=== PATIENT | female | born 1990 | race Caucasian/White ===

== ENCOUNTER → 2020-09-26 | Outpatient (CLI) | payer OTHER ==
[~2020-09-26] MED LIST: ACET500T PO; IBUP200T2 PO; PRENTAB74 PO
--- NOTE | 2020-09-27 15:44 | REP ---
INDICATION: ANATOMY. Supervision of . Second trimester. COMPARISON: None. TECHNIQUE: Transabdominal obstetric sonography. FINDINGS: Scanning through the gravid uterus demonstrates a viable single intrauterine gestation in variable lie. motion is observed and heart rate is recorded at 142 beats per minute. A anterior placenta is seen, grade 1, without evidence of placenta previa. Closed cervical length is measured at 3.1 cm transabdominally. No extrauterine abnormality is observed. Amniotic fluid is subjectively normal. No anomaly is seen. The following anatomic structures are identified and felt to be sonographically unremarkable: cranium, choroid plexus, cavum, cerebellum and posterior fossa, face and profile, lungs, four-chamber heart with left and right ventricular outflow tract views, diaphragm, left-sided stomach, abdominal wall cord insertion, three-vessel umbilical cord, kidneys and bladder, spine, and upper and lower extremities. The technologist's notes describe an unusual curvature to the interventricular septum, however on the submitted two-dimensional and cine images, I do not see a cardiac abnormality. Biometry chart: BPD 5.0 cm, 21 weeks 2 days Head circumference 20.3 cm, 22 weeks 3 days Abdominal circumference 17.9 cm, 22 weeks 6 days Femur length 3.8 cm, 22 weeks 1 day Humeral length 3.6 cm, 22 weeks 4 days HC AC ratio normal 1.13 Cephalic index 0.66 open (0.70-0.86) Estimated weight 502 g, 1 lb 1 oz, 85th percentile for 21 weeks 4 days IMPRESSION: Viable single intrauterine gestation at 22 weeks 2 days by today's composite sonographic criteria. JING by today's sonography January 28, 2021. No complication identified. Expected gestational age estimate from prior dated 03/08 weeks 4 days JING by prior dated 02 February 2021. <Electronically signed by Bryan Rao > 09/27/20 [id number]
== END ==
LOC: M WHC 15:08
PROVIDERS: ATTEND Specialist
DX: Z34.82 Encounter for supervision of other normal pregnancy, second trimester (principal); Z3A.22 22 weeks gestation of pregnancy

== ENCOUNTER → 2020-11-07 | Outpatient (REF) | payer OTHER ==
[2020-11-07 14:26] LABS: HEMOGLOBIN 12.1 g/dl (12.0-15.5); MEAN CORPUSCULAR HEMOGLOBIN 28.3 pg (27.0-33.0); MEAN CORPUSCULAR HGB CONC 31.8 g/dl (32.0-36.5); MEAN CORPUSCULAR VOLUME 88.8 fl (80.0-96.0); PLATELET COUNT, AUTOMATED 289 10^3/uL (150-450); RED BLOOD COUNT 4.28 10^6/uL (4.00-5.40); WHITE BLOOD COUNT 9.6 10^3/uL (4.0-10.0)
== END ==
LOC: M PLALAB 10:47
PROVIDERS: ATTEND Specialist
DX: Z34.82 Encounter for supervision of other normal pregnancy, second trimester (principal)
CPT/HCPCS: 36415; 82950; 85027; 86850; 86900; 86901; G0463; J2790

== ENCOUNTER → 2020-11-22 | Outpatient (CLI) | payer OTHER ==
--- NOTE | 2020-11-23 07:07 | REP ---
INDICATION: F/U ANATOMY COMPARISON: 09/26/2020 TECHNIQUE: Transabdominal obstetrical ultrasound with color Doppler evaluation. FINDINGS: Examination demonstrates a single live intrauterine in cephalic presentation. motion is identified by technologist. Placenta is noted anterior and grade 1 without evidence for placenta previa or abruption. Amniotic fluid volume is normal. Cervix measures 3.2 cm in length and appears closed.. Gestational age by LMP and 1st U/S 29 weeks 5 days with JING 02/02/2021. Gestational age by current measurements 30 weeks 4 days with JING 01/27/2021. FHR equals 126 beats per minute. Estimated weight 1531 grams (55thpercentile). ADELAIDA: 12.9 cm (9.1-23.3) Limited anatomical assessment demonstrates relatively normal four-chamber heart views. No definite abnormality or defect is identified. Close clinical observation and follow-up may be considered. IMPRESSION: 1. Single live intrauterine in cephalic presentation demonstrating appropriate interval growth. 2. Relatively normal appearance to the heart and cardiac ventricular outflow tracts. Consider close clinical observation and follow-up as necessary. <Electronically signed by Xu Calderon > 11/23/20 0701
== END ==
LOC: M WHC 10:05
PROVIDERS: ATTEND Advanced Practice Midwife
DX: Z36.89 Encounter for other specified antenatal screening (principal); Z3A.30 30 weeks gestation of pregnancy

== ENCOUNTER → 2020-11-28 | Outpatient (REF) | payer OTHER | LOC: M PLALAB 12:02 | PROVIDERS: ATTEND Advanced Practice Midwife | DX: Z36.89 Encounter for other specified antenatal screening (principal) ==

== ENCOUNTER 2020-12-22 16:48 | Inpatient (IN) | payer OTHER ==
[~2020-12-22] VITALS: Ht 157.5 cm; Wt 78.7 kg
[2020-12-22 17:16] VITALS: BP 135/87
[2020-12-22] MEDS ORDERED: PROMETHAZINE INJ 25 MG/ML VIAL (J2550) IV ONE (17:30)
[2020-12-22] MEDS ORDERED: MORPHINE 10 MG/ML 1ML VIAL (J2270) IV ONE (17:30)
[2020-12-22] MEDS ORDERED: LR 1,000 ML IV ONE (17:30)
[2020-12-22 19:06] VITALS: BP 136/78
--- NOTE | 2020-12-22 19:06 | REPVR ---
PROCEDURE INFORMATION: Exam: US Retroperitoneal Limited, Kidneys Exam date and time: 12/22/2020 6:02 PM Age: 30 years old Clinical indication: Abdominal pain; Flank; Right; ; Additional info: HX kidney stones TECHNIQUE: Imaging protocol: Real-time ultrasound of the retroperitoneum with image documentation. Examination was focused on the kidneys. COMPARISON: No relevant prior studies available. FINDINGS: Right kidney: Right kidney measures 11.8 x 5.6 x 5 cm. Mild hydronephrosis. Mid and distal ureter not visualized. Multiple echogenic foci measuring up to 1.2 cm in the lower pole of the right kidney consistent with intrarenal calculi. Left kidney: Left kidney measures 10.9 x 4.9 x 5.9 cm. Multiple echogenic foci measuring up to 1.3 cm in the left kidney consistent with intrarenal calculi. Uterus: Single intrauterine gestation demonstrated. heart rate 145 bpm. Fetus in cephalic presentation. IMPRESSION: 1. Mild hydronephrosis. Mid and distal ureter not visualized. Multiple echogenic foci measuring up to 1.2 cm in the lower pole of the right kidney consistent with intrarenal calculi. 2. Multiple echogenic foci measuring up to 1.3 cm in the left kidney consistent with intrarenal calculi. Electronically signed by: Ever Juárez On 12/22/2020 19:05:17 PM
[2020-12-22 19:22] LABS: HEMATOCRIT 33.9 % (36.0-47.0); HEMOGLOBIN 10.9 g/dl (12.0-15.5); MEAN CORPUSCULAR HGB CONC 32.2 g/dl (32.0-36.5); MEAN CORPUSCULAR VOLUME 84.1 fl (80.0-96.0); PLATELET COUNT, AUTOMATED 214 10^3/uL (150-450); RED BLOOD COUNT 4.03 10^6/uL (4.00-5.40); WHITE BLOOD COUNT 15.1 10^3/uL (4.0-10.0)
[2020-12-22 20:05] VITALS: BP 116/70
--- NOTE | 2020-12-22 21:09 | IPNPDOC ---
Text Note Date of Service The patient was seen on 12/22/20. NOTE Labor and Delivery Triage Note: S: 30-year-old 2 para 1 presents with right flank pain. Patient has a long history of nephrolithiasis and reports that pain is similar. She is recently passed a kidney stone. Denies contractions, vaginal bleeding,LOF or fevers and chills. Reports active movement. O: vss, AF no ctx Cat 1 tracing Gen: well appearing, NAD Abd: gravid, soft, nttp back: Right flank pain Renal u/s: IMPRESSION: 1. Mild hydronephrosis. Mid and distal ureter not visualized. Multiple echogenic foci measuring up to 1.2 cm in the lower pole of the right kidney consistent with intrarenal calculi. 2. Multiple echogenic foci measuring up to 1.3 cm in the left kidney consistent with intrarenal calculi. A/P: 30-year-old 2 para 1 with nephrolithiasisacute flank pain reassuring status - IV hydration, antiemetics and morphine for pain Rocephin 1 g daily Will reevaluate April Mccarty MD VS,Delores I+O Delores HARRELL I+O Laboratory Tests 12/22/20 18:55 Vital Signs Date Time Temp Pulse Resp B/P (MAP) Pulse Ox O2 Delivery O2 Flow Rate FiO2 12/22/20 19:01 18 Room Air 12/22/20 17:16 98.8 88 135/87 (103) APRIL MCCARTY MD. Dec 22, 2020 21:09
[2020-12-22] MEDS ORDERED: PERCOCET 5MG/325MG TAB PO PRN (21:10)
[2020-12-22 21:26] VITALS: BP 116/67
[2020-12-22] MEDS: ONDANSETRON 4MG/2ML VIAL IV PRN (21:41)
[2020-12-22] MEDS: cefTRIAXone SOD 1 GM in D5W MINI-BAG PLUS 50 ML IV SCH (21:41)
[2020-12-22] MEDS: LR 1,000 ML IV SCH (21:41)
[2020-12-22] MEDS: TAMSULOSIN 0.4 MG CAP PO SCH (21:49)
[2020-12-22 22:45] VITALS: BP 112/56
[2020-12-23] VITALS (21 sets, daily range): BP systolic 95–128; BP diastolic 54–79
[2020-12-23] MEDS ORDERED: MORPHINE 10 MG/ML 1ML VIAL (J2270) IV ONE (00:10)
[2020-12-23] MEDS ORDERED: MORPHINE 10 MG/ML 1ML VIAL (J2270) SC ONE (00:10)
[2020-12-23] MEDS: PROMETHAZINE INJ 25 MG/ML VIAL (J2550) IV PRN (00:28)
[2020-12-23] MEDS: PERCOCET 5MG/325MG TAB PO PRN ×5 (03:51→20:25)
[2020-12-23] MEDS: LR 1,000 ML IV SCH ×3 (04:30→19:00)
[2020-12-23] MEDS: ONDANSETRON 4MG/2ML VIAL IV PRN ×5 (04:32→20:12)
[2020-12-23] MEDS: TAMSULOSIN 0.4 MG CAP PO SCH (20:36)
[2020-12-23] MEDS: cefTRIAXone SOD 1 GM in D5W MINI-BAG PLUS 50 ML IV SCH (21:54)
[2020-12-24] VITALS (7 sets, daily range): BP systolic 107–140; BP diastolic 57–71
[2020-12-24] MEDS: ONDANSETRON 4MG/2ML VIAL IV PRN ×3 (00:11→18:19)
[2020-12-24] MEDS: PERCOCET 5MG/325MG TAB PO PRN ×5 (00:20→23:07)
[2020-12-24] MEDS ORDERED: MORPHINE 2 MG/ML 1ML VIAL (J2270) IV ONE (00:40)
[2020-12-24] MEDS ORDERED: MORPHINE 4 MG/ML 1ML VIAL/SYRINGE (J2270) As Ordered ONE (00:42)
[2020-12-24] MEDS ORDERED: LR 500 ML IV ONE (00:55)
[2020-12-24] MEDS: LR 1,000 ML IV SCH ×3 (02:05→20:52)
--- NOTE | 2020-12-24 06:31 | IPNPDOC ---
Text Note Date of Service The patient was seen on 12/24/20. NOTE Progress Has continued to request percocet every 4-6 hours for pain Required add'l dose IV morphine and IV fluid bolus for pain 0050 Cat I tracings Urine straining with only sediment obtained Sleeping soundly at this time. Will update physician VS,Delores, I+O VS, Delores, I+O Vital Signs Date Time Temp Pulse Resp B/P (MAP) Pulse Ox O2 Delivery O2 Flow Rate FiO2 12/24/20 06:00 98.8 104 16 107/57 (74) 96 Room Air I&O- Last 24 Hours up to 6 AM 12/24/20 06:00 Intake Total 3158 ml Output Total 3950 ml Balance -792 ml Marta Maxwell CNM Dec 24, 2020 06:31
[2020-12-24] MEDS ORDERED: MORPHINE 4 MG/ML 1ML VIAL/SYRINGE (J2270) IV ONE (09:10)
[2020-12-24] MEDS: PROMETHAZINE INJ 25 MG/ML VIAL (J2550) IV PRN (10:05)
--- NOTE | 2020-12-24 10:42 | REP ---
INDICATION: continued right flank pain passing sediment. COMPARISON: Comparison sonography December 22, 2020.. TECHNIQUE: Urinary tract sonography. FINDINGS: Scanning at the level of the urinary bladder shows no abnormality. Renal cortical echogenicity pattern is increased on the right compared to echogenicity of the liver. Normal cortical echogenicity pattern is seen on the left. There is mild to moderate right-sided hydronephrosis, essentially unchanged compared to the study done 2 days prior. There is no evidence of left-sided hydronephrosis. No renal mass is observed. Right renal dimensions are 12.0 x 6.5 x 5.7 cm. The left kidney measures 11.4 x 4.3 x 4.9 cm. There are multiple intrarenal echogenic foci suspicious for bilateral intrarenal nephrolithiasis. heart rate is recorded during the exam at 141 beats per minute. IMPRESSION: Mild to moderate right-sided hydronephrosis persists, essentially unchanged compared to the study done 2 days prior. Findings consistent with intrarenal nephrolithiasis bilaterally. Increased renal cortical echogenicity pattern on the right.. <Electronically signed by Bryan Rao > 12/24/20 1038
[2020-12-24] MEDS ORDERED: PERCOCET 5MG/325MG TAB PO PRN (12:45)
[2020-12-24] MEDS ORDERED: MEPERIDINE 50 MG/ML 1ML VIAL (J2175) IM ONE ×2 (13:00→18:50)
--- NOTE | 2020-12-24 13:44 | IPNPDOC ---
Text Note Date of Service The patient was seen on 12/24/20. NOTE Progress Note Emma is a 30yo with SIUP at 34w2d admitted on 12/22 for pain control of her right sided renal colic related to nephrolithiasis. She has a long- standing history of nephrolithiasis and states she "keeps a baggy of stones passed at home" because she passes stones so frequently. When she was admitted on 12/22 she was started on IVF, flomax, rocephin, percocet, and morphine for breakthrough pain. Original renal u/s on the showed mild-mod right hydronephrosis but was unable to visualize the ureter. She has intrarenal nephrolithiasis bilaterally. Her NSTs have been reactive. Unfortunately, she feels she has still not passed the nephrolith and she has intermittent right sided back pain that is severe- the percocet helps for a few hours, but the pain always returns before her next dose is due. She feels movement, does not feel regular uterine ctx, no LOF and no vaginal bleeding. Vitals wnl, afebrile Gen: WDWN, patient sleeping when I came into the room, but after talking with her dad for a few minutes, she woke up in pain and was moving in the bed unable to become comfortable Abdomen: soft, gravid, NTTP Extremities: no edema BLE Labs: urinalysis 2+ blood WBC 15.1, H/H 10.9/33.9 Imagin/12 renal u/s Mild to moderate right sided hydronephrosis persists, essentially unchanged compared to study done 2 days prior. Findings c/w intrarenal nephrolithiasis bilaterally. Increased renal cortical echogenicity on the right. Assessment: Emma is a 30yo with SIUP at 34w2d admitted on 12/22 for pain control of her right sided renal colic related to nephrolithiasis. She continues to have pain despite continuous percocet use and morphine IV for breakthrough and she has failed to pass the nephrolith despite IVF and flomax. I discussed with Dr. Hodge, urologist solutions analyst, regarding the patient's situation and she stated ureteral stent is not really an option at this point but patient could be sent to [facility] for nephrostomy tube (since there is no on-call IR here this weekend) if the patient strongly desired to pursue this for treatment (it is not necessary at this point since she only has mild-mod hydronephrosis with no e/o infection). She also suggested that demerol may be better to treat the renal colic than morphine and confirmed flomax is an effective dose. Vitals wnl, benign exam (CVA tenderness not assessed given patient's acute pain). Reassuring status. Plan: -Continue antepartum care -Rx demerol IM 50mg x1 now and percocet changed to 1 tab q2hr prn. Will see if this is a more effective pain regimen for her -Discussed we can re-address the possibility of nephostomy tube tonight/tomorrow depending on her clinical course -Assessment of renal calculus ordered to determine what it is made of (she is passing sediment) -Regular diet -Will d/c rocephin since she has no s/sx of infection -Continue flomax and IVF -Continue NSTs as scheduled -Await passage of stone or pain level that is improved enough that it can be managed at home with PO meds Jenny Calderón MD VS,Delores, I+O VSDelores, I+O Vital Signs Date Time Temp Pulse Resp B/P (MAP) Pulse Ox O2 Delivery O2 Flow Rate FiO2 12/24/20 11:23 20 12/24/20 10:00 98.3 101 117/70 (86) 98 Room Air I&O- Last 24 Hours up to 6 AM 12/24/20 05:59 Intake Total 3158 ml Output Total 3950 ml Balance -792 ml Jenny Calderón MD Dec 24, 2020 13:25
[2020-12-24] MEDS ORDERED: MORPHINE 2 MG/ML 1ML VIAL (J2270) IV PRN (19:40)
[2020-12-24] MEDS: TAMSULOSIN 0.4 MG CAP PO SCH (20:51)
[2020-12-25] VITALS (7 sets, daily range): BP systolic 108–123; BP diastolic 58–75
[2020-12-25] MEDS: PERCOCET 5MG/325MG TAB PO PRN ×4 (02:06→11:37)
[2020-12-25] MEDS: LR 1,000 ML IV SCH ×3 (04:24→20:35)
--- NOTE | 2020-12-25 08:42 | IPNPDOC ---
Text Note Date of Service The patient was seen on 12/25/20. NOTE Progress Note Emma is a 30yo with SIUP at 34w3d admitted on 12/22 for pain control for right sided renal colic related to nephrolithiasis. She has a long-standing history of nephrolithiasis. When she was admitted on 12/22 she was started on IVF, flomax, rocephin, percocet, and morphine for breakthrough pain. Original renal u/s on the showed mild-mod right hydronephrosis but was unable to visualize the ureter. She has intrarenal nephrolithiasis bilaterally. Renal u/s was repeated on 12/24 and was unchanged. I discontinued rocephin on 12/24 since she had no fevers or e/o infection. Her NSTs have been reactive. She feels she h as still not passed the nephrolith and she has intermittent right sided back pain which was much better controlled last night on 2 percocet q3hr. She feels movement, does not feel regular uterine ctx, no LOF and no vaginal bleeding. Vitals wnl, afebrile Gen: WDWN, A&Ox3, patient resting comfortably Abdomen: soft, gravid, NTTP Extremities: no edema BLE and no pain with palpation of calves Labs: urinalysis 2+ blood WBC 15.1, H/H 10.9/33.9 Imagin/12 renal u/s Mild to moderate right sided hydronephrosis persists, essentially unchanged compared to study done 2 days prior. Findings c/w intrarenal nephrolithiasis bilaterally. Increased renal cortical echogenicity on the right. Assessment: Emma is a 30yo with SIUP at 34w3d admitted on 12/22 for pain control of her right sided renal colic related to nephrolithiasis. She has pain much more well controlled last night on percocet scheduled q3hr instead of q4hr, but she has still failed to pass the nephrolith despite IVF and flomax. Vitals wnl, benign exam. Reassuring status. Plan: -Continue routine antepartum care -Continue 2 tabs percocet q3hr with 2g IV morphine prn breakthrough pain -Assessment of renal calculus ordered to determine what it is made of (she is passing sediment) -Regular diet -Continue flomax and IVF -Continue NSTs as scheduled -Await passage of stone or pain level that is improved enough that it can be managed at home with PO meds Jenny Calderón MD VS,Delores, I+O VSDelores I+O Vital Signs Date Time Temp Pulse Resp B/P (MAP) Pulse Ox O2 Delivery O2 Flow Rate FiO2 12/25/20 06:01 97.6 64 18 109/67 (81) 96 Room Air I&O- Last 24 Hours up to 6 AM 12/25/20 06:00 Intake Total 3650 ml Output Total 3750 ml Balance -100 ml Jenny Calderón MD Dec 25, 2020 08:42
--- NOTE | 2020-12-25 12:18 | CR.PDOC ---
General Date of Consultation: Dec 25, 2020 Consultation REASON FOR CONSULTATION/CHIEF COMPLAINT: Nephrolithiasis and right back pain HISTORY OF PRESENT ILLNESS: The patient is a 34 week 3 day female who was admitted on 12/22/20 with right flank pain and a history of significant nephrolithiasis. She says that she passes at least 1-2 stones weekly. She has never had a full workup for this and was living in [place] prior to this. She does not know what type the stone she makes. She has never needed intervention before even during her previous pregnancies. During admission she was started on IV fluids, pain medication, Flomax, and originally Rocephin. She has been off the Rocephin and remains afebrile with a normal white count. She has no nausea, vomiting, or other issues besides the pain. The pain is now well-controlled on [id number] medication. She denies any gross hematuria or burning with urination. She only gets occasional urinary tract infections. She normally can tell where her stones are but says that she cannot tell this time. ALLERGIES: Please see below. HOME MEDICATIONS: Please see below. PAST MEDICAL HISTORY: Denies PAST SURGICAL HISTORY: Denies FAMILY HISTORY: Mother and Paternal Grandfather had kidney stones SOCIAL HISTORY: . This is her 4th child. Non smoker. REVIEW OF SYSTEMS: 12 system review neg except for the HPI PHYSICAL EXAMINATION: VITAL SIGNS: Please see below. GENERAL APPEARANCE: WD/WN in no apparent distress HEENT: NC/AT, Perrl, EOMI RESPIRATORY: Clear CARDIOVASCULAR: Reg ABDOMEN: Soft EXTREMITIES: No cyanosis, clubbing, or edema NEUROLOGICAL: Non focal. A+Ox3 PSYCHIATRIC: Normal LABORATORY DATA: Please see below. ASSESSMENT/PLAN: -34 week female with known bilateral nephrolithiasis with right flank pain since 12/22/2020 with an ultrasound showing significant bilateral stones mild to moderate right hydronephrosis Since patient has no indications for definitive management we discussed con tinued watchful waiting and pain management and supportive care, ureteral stent placement, and the possibility of a percutaneous nephrostomy tube. At this point she would like to continue with watchful waiting since she has not had any nausea, vomiting, fever, chills, or other significant issues. We discussed the pros and cons of all the above and if intervention is needed it sounds likely would proceed with a percutaneous nephrostomy tube. After the patient delivers she most likely will need a CT scan and a 24-hour stone risk profile to discuss what we can do to prevent stones in the future. Vital Signs/I&O Vital Signs Date Time Temp Pulse Resp B/P (MAP) Pulse Ox O2 Delivery O2 Flow Rate FiO2 12/25/20 11:37 18 12/25/20 10:00 97.8 110 116/68 (84) 100 Room Air I&O- Last 24 Hours up to 6 AM 12/25/20 06:00 Intake Total 3650 ml Output Total 3750 ml Balance -100 ml Allergies Coded Allergies: No Known Allergies (Unverified , 01/06/13) Home Medications Scheduled Acetaminophen (Acetaminophen) 500 Mg Tab, 1,000 MG PO Q4HP, (Reported) Vit 49/Iron Fum/Folic (Mini Tablet) 1 Each Tab, 1 PO DAILY, (Reported) Scheduled PRN Ondansetron (Ondansetron Odt) 4 Mg Tab.rapdis, 1 TAB PO Q6-8HP PRN for nausea/vomiting for 4 Days, #16 Oxycodone HCl (Oxycodone HCl) 5 Mg Tablet, 1 TAB PO QIDP PRN for pain for 5 Days, #20 MARITA GARCIA MD Dec 25, 2020 12:18
--- NOTE | 2020-12-25 13:18 | IPNPDOC ---
Text Note Date of Service The patient was seen on 12/25/20. NOTE Change of percocet to oxycodone RN brought to my attention patient is now at max dose of tylenol for today due to the 2 tabs of percocet q3hr which patient has been requesting every 3 hours on the dot. I spoke with pharmacist who assisted me in creating a new dosage plan: oxycodone 10mg q3hr prn with next dose of tylenol tonight at 2100, 1000mg. K Stephane VS,Delores, I+O VS, Jazlyne, I+O Vital Signs Date Time Temp Pulse Resp B/P (MAP) Pulse Ox O2 Delivery O2 Flow Rate FiO2 12/25/20 12:10 18 12/25/20 10:00 97.8 110 116/68 (84) 100 Room Air I&O- Last 24 Hours up to 6 AM 12/25/20 06:00 Intake Total 3650 ml Output Total 3750 ml Balance -100 ml Jenny Calderón MD Dec 25, 2020 13:18
[2020-12-25] MEDS: oxyCODONE 5MG TAB PO PRN ×4 (14:49→23:32)
[2020-12-25] MEDS: ACETAMINOPHEN 500 MG TAB PO SCH (20:31)
[2020-12-25] MEDS: TAMSULOSIN 0.4 MG CAP PO SCH (20:31)
[2020-12-26 02:00] VITALS: BP 118/68
[2020-12-26] MEDS: oxyCODONE 5MG TAB PO PRN ×7 (02:28→22:21)
[2020-12-26] MEDS: LR 1,000 ML IV SCH ×2 (03:31→20:54)
[2020-12-26 06:00] VITALS: BP 107/65
[2020-12-26] MEDS: ACETAMINOPHEN 500 MG TAB PO SCH ×3 (08:37→20:53)
--- NOTE | 2020-12-26 09:05 | IPNPDOC ---
Text Note Date of Service The patient was seen on 12/26/20. NOTE Progress Note Emma is a 30yo with SIUP at 34w4d admitted on 12/22 for pain control for right sided renal colic related to nephrolithiasis. She has a long-standing history of nephrolithiasis. When she was admitted on 12/22 she was started on IVF, flomax, rocephin, percocet, and morphine for breakthrough pain. Original renal u/s on the showed mild-mod right hydronephrosis but was unable to visualize the ureter. She has intrarenal nephrolithiasis bilaterally. Renal u/s was repeated on 12/24 and was unchanged. I discontinued rocephin on 12/24 since she had no fevers or e/o infection. Her NSTs have been reactive. She feels she h as still not passed the nephrolith and she has intermittent right sided back pain which continues to be overall well controlled on oxycodone 10mg q3hr. Only had one real pain episode yesterday that the PO pain medication was not sufficient to cover. She feels movement, does not feel regular uterine ctx, no LOF and no vaginal bleeding. Vitals wnl, afebrile Gen: WDWN, A&Ox3, patient resting comfortably Abdomen: soft, gravid, NTTP Extremities: no edema BLE and no pain with palpation of calves Labs: urinalysis 2+ blood WBC 15.1, H/H 10.9/33.9 Imagin/12 renal u/s Mild to moderate right sided hydronephrosis persists, essentially unchanged compared to study done 2 days prior. Findings c/w intrarenal nephrolithiasis bilaterally. Increased renal cortical echogenicity on the right. Assessment: Emma is a 30yo with SIUP at 34w4d admitted on 12/22 for pain control of her right sided renal colic related to nephrolithiasis. She has pain better controlled on oxycodone q3hr instead of q4hr, but she has still failed to pass the nephrolith despite IVF and flomax. Vitals wnl, benign exam. Reassuring status. Plan: -Continue routine antepartum care -Continue 10mg oxycodone q3hr with tylenol and 2g IV morphine prn breakthrough pain -Assessment of renal calculus ordered to determine what it is made of (she is passing sediment) -Appreciate recs from Urologist Dr. Hodge -Regular diet -Continue flomax and IVF -Continue NSTs as scheduled -Await passage of stone or pain level that is improved enough that it can be managed at home with PO meds. Discussed with patient that she should consider possibility of going home later today vs tomorrow if pain well managed Jenny Calderón MD VS,Delores, I+O VS, Delores I+O Vital Signs Date Time Temp Pulse Resp B/P (MAP) Pulse Ox O2 Delivery O2 Flow Rate FiO2 12/26/20 06:00 96.6 104 18 107/65 (79) 95 Room Air I&O- Last 24 Hours up to 6 AM 12/26/20 06:00 Intake Total 3895 ml Output Total 4230 ml Balance -335 ml Jenny Calderón MD Dec 26, 2020 09:05
[2020-12-26 10:00] VITALS: BP 112/61
[2020-12-26 14:00] VITALS: BP 117/67
[2020-12-26 17:55] VITALS: BP 110/67
[2020-12-26] MEDS: TAMSULOSIN 0.4 MG CAP PO SCH (20:53)
[2020-12-26] MEDS: DOCUSATE SODIUM 100MG CAPSULE PO SCH (20:53)
[2020-12-26 22:00] VITALS: BP 119/76
[2020-12-27 02:00] VITALS: BP 120/70
[2020-12-27] MEDS: oxyCODONE 5MG TAB PO PRN (02:41)
[2020-12-27 06:00] VITALS: BP 116/72
[2020-12-27] MEDS: ONDANSETRON 4MG/2ML VIAL IV PRN (09:03)
[2020-12-27 09:42] VITALS: BP 112/69
[2020-12-27] MEDS: DOCUSATE SODIUM 100MG CAPSULE PO SCH (09:56)
[2020-12-27] MEDS: ACETAMINOPHEN 500 MG TAB PO SCH (09:57)
[2020-12-27] MEDS ORDERED: OXYC-517 PO (10:24)
--- NOTE | 2020-12-27 10:55 | DS.PDOC ---
Discharge Summary General Date of Admission Dec 24, 2020 at 19:39 Date of Discharge Dec 27, 2020 Discharge Summary PROCEDURES PERFORMED DURING STAY: None ADMITTING DIAGNOSES: 1. 34 weeks gestation, symptomatic nephrolithiasis DISCHARGE DIAGNOSES: 1. same. COMPLICATIONS/CHIEF COMPLAINT: Labor Check. HISTORY OF PRESENT ILLNESS: 30 yo at 34 0/7 weeks presents with right flank pain for several days. It comes in waves. it is severe. She has a h/o kidney stones.. HOSPITAL COURSE: Pt seen at 34 weeks gestation on 12/22/20. She had an ultrasound which showed bilateral, multiple kidney stones. She was given pain management, IV fluids, and antibiotics. A urology consult was obtained by Dr. Hodge. The fetus had regular monitoring. Pain managment was challenging at times. Urology would only recommend intervention via nephrostomy tube for worsening hydronephrosis. The patient eventually ad spontaneous resolution of her pain December 27, 2020. She was stable for discharge on that day. DISCHARGE MEDICATIONS: Please see below. ALLERGIES: Please see below. PHYSICAL EXAMINATION ON DISCHARGE: VITAL SIGNS: Please see below. GENERAL: NAD HEENT: WNL NECK: WNL CARDIOVASCULAR EXAMINATION: RRR RESPIRATORY EXAMINATION: CTA ABDOMINAL EXAMINATION: NT, gravid, minimal right CVA tenderness EXTREMITIES: NT LABORATORY DATA: Please see below. PROGNOSIS: good ACTIVITY: As tolerated. DISCHARGE PLAN: home DISCHARGE INSTRUCTIONS: 1. Discharge home 2. f-u office 1 week 3.Oxycodone (#20) ordered for pain control as needed 4. Pt understands that she may have a recurrence of pain from kidney stones during DISCHARGE CONDITION: Stable. TIME SPENT ON DISCHARGE: Greater than 10 minutes. Vital Signs/I&Os Vital Signs Date Time Temp Pulse Resp B/P (MAP) Pulse Ox O2 Delivery O2 Flow Rate FiO2 12/27/20 09:42 99.0 96 20 112/69 (83) 90 Room Air I&O- Last 24 Hours up to 6 AM 12/27/20 06:00 Intake Total 2938 ml Output Total 2850 ml Balance 88 ml Discharge Medications Scheduled Acetaminophen (Acetaminophen) 500 Mg Tab, 1,000 MG PO Q4HP, (Reported) Vit 49/Iron Fum/Folic (Mini Tablet) 1 Each Tab, 1 PO DAILY, (Reported) Scheduled PRN Oxycodone HCl (Oxycodone HCl) 5 Mg Tablet, 1 TAB PO QIDP PRN for pain Allergies Coded Allergies: No Known Allergies (Unverified , 01/06/13) LITZY HERMOSILLO MD Dec 27, 2020 10:55
[2020-12-27] MEDS ORDERED: ONDA4TAB6 PO (10:58)
== END 2020-12-27 11:20 | disposition home or self-care (01) | DRG 833 ==
LOC: M LDO 16:48 → M OBS 12-23 14:32 → M LDO 12-24 19:39 → M OBS 12-24 19:39 → OBSVTOIN 12-24 19:39
PROVIDERS: ADMIT Obstetrics & Gynecology; ATTEND Obstetrics & Gynecology
DX: O26.893 Other specified pregnancy related conditions, third trimester (principal); N20.0 Calculus of kidney; Z3A.34 34 weeks gestation of pregnancy

== ENCOUNTER → 2021-01-03 | Outpatient (REF) | payer OTHER ==
[~2021-01-03] MED LIST changes: +ONDA4TAB6 PO; +OXYC-517 PO
== END ==
LOC: M SFHCWAGY 17:12
PROVIDERS: ATTEND Advanced Practice Midwife
DX: Z36.89 Encounter for other specified antenatal screening (principal); Z3A.35 35 weeks gestation of pregnancy

== ENCOUNTER → 2021-01-11 | Outpatient (REF) | payer OTHER | LOC: M SFHCWAGY 12:37 | PROVIDERS: ATTEND Advanced Practice Midwife | DX: N23 Unspecified renal colic (principal) ==

== ENCOUNTER 2021-01-27 07:42 | Inpatient (IN) | payer OTHER ==
[~2021-01-27] VITALS: Ht 157.5 cm; Wt 77.9 kg
[2021-01-27] VITALS (41 sets, daily range): BP systolic 84–150; BP diastolic 46–90
[2021-01-27] MEDS ORDERED: LACTATED RINGER'S 1000 ML IV STA (08:03)
[2021-01-27] MEDS ORDERED: METHYLERGONOVINE MALEATE 0.2 MG/ML VIAL (J2210) IM PRN (08:05)
[2021-01-27] MEDS ORDERED: LIDOCAINE 1% MDV 20ML VIAL INFIL PRN (08:05)
[2021-01-27] MEDS ORDERED: OXYTOCIN DRIP 30 UNITS in IV 1 EA IV PRN (08:05)
[2021-01-27 09:18] LABS: HEMATOCRIT 37.4 % (36.0-47.0); HEMOGLOBIN 11.8 g/dl (12.0-15.5); MEAN CORPUSCULAR HEMOGLOBIN 26.3 pg (27.0-33.0); MEAN CORPUSCULAR HGB CONC 31.6 g/dl (32.0-36.5); MEAN CORPUSCULAR VOLUME 83.5 fl (80.0-96.0); PLATELET COUNT, AUTOMATED 248 10^3/uL (150-450); RED BLOOD COUNT 4.48 10^6/uL (4.00-5.40); WHITE BLOOD COUNT 9.6 10^3/uL (4.0-10.0)
[2021-01-27] MEDS ORDERED: OXYTOCIN DRIP 30 UNITS in IV 1 EA IV SCH ×2 (09:30→16:20)
[2021-01-27] MEDS: LR 1,000 ML IV SCH ×2 (09:46→15:07)
--- NOTE | 2021-01-27 09:55 | HPEPDOC ---
Obstetrical History & Physical General Date of Admission Jan 27, 2021 at 07:42 History of Present Illness Chief Complaint: Induction of labor Age: 30 : 5 Term: 3 Pre-term: 0 Abortions: 1 Livin Dating EGA at Admission: 39 (1) Past Medical History Past Obstetrical History #1: Past Obstetrical History: Primgravida (2012) Type of Delivery: Spontaneous Vaginal Del. Sex of Infant: Female (8#13) Complications: Yes (PPH) Past Obstetrical History #2: Past Obstetrical History: Multigravida (2015) Type of Delivery: Spontaneous Vaginal Del. Sex of Infant: Female (8#4) Complications: No Past Obstetrical History #3: Past Obstetrical History: Multigravida (2017) Type of Delivery: Spontaneous Vaginal Del. 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 Past Medical History Medical History kidney stones, COVID + 10/10/2020 Surgical History: Cot[place] teeth Family History Significant Family History: No pertinent family hx Social History Marital Status: Family situation: Spouse/partner home Psychosocial History: No pertinent psych hx * Smoker: non-smoker Alcohol: Denies Drugs: denies Imunizations Tdap status: current Allergies Coded Allergies: No Known Allergies (Unverified , 01/06/13) Medications Scheduled Acetaminophen (Acetaminophen) 500 Mg Tab, 500 MG PO Q4HP Vit 49/Iron Fum/Folic (Mini Tablet) 1 Each Tab, 1 PO DAILY Physical Examination Physical Examination GENERAL: Alert and oriented times three. BREAST: . ABDOMEN: Gravid and non-tender to touch. FETUS: Is vertex (VTX) by sterile vaginal examination (SVE), fetus is vertex (VTX) by Harshal. EFW 8# HEART RATE: Regular rate and rhythm. LUNGS: Clear to auscultation (CTA). EXTREMITIES: No edema. No clonus. Deep tendon reflexes (DTRs) + 2. Vital Signs/I&O Vital Signs Date Time Temp Pulse Resp B/P (MAP) Pulse Ox O2 Delivery O2 Flow Rate FiO2 01/27/21 08:09 98.4 116 120/71 (87) Laboratory Data 24H LABS Laboratory Tests 2 01/27/21 08:16: Serology Scanned Report Hepatitis B Testing 01/27/21 08:45: 01/27/21 08:46: Nucleated Red Blood Cells % (auto) 0.0 CBC/BMP Laboratory Tests 01/27/21 08:46 Pertinent Laboratoy Data Blood Type: O- RBC Antibody Screen: Negative HIV: Negative Hepatitis B: Negative Rapid Plasma Reagin: Nonreactive Rubella: Immune Varicella: Immune Chlamydia/Gonorrhea: Negative Group B Streptococcus: Negative Glucose Tolerance Test: 111 Anatomy Ultrasound Ultrasound Date: Sep 26, 2020 Placenta Location: Anterior Normal Anatomy: Yes Placenta Previa: No Estimated Weight (grams): 502 (85%) Other Ultrasounds 11/22/2020 Normal f/u anatomy 1531gm, 55% 12/22/2020 Renal scan Multiple intrarenal calculi bilaterally, mild hydronephrosis 12/24/2020 Renal scan moderate right hydronephrosis, multiple bilater renal ca lculi Steroid Therapy Steroid Therapy: No Vaginal Examination Dilation: 3 cm Effacement: 80% Station: -3 Cervical Consistency: Medium Cervical Position: Posterior Presentation: Cephalic presentation Assessment Heart Rate (FHR): 135 Variability: Moderate Accelerations: Positive Decelerations: None Tocometer Contractions: Yes Frequency: irregular Duration: less than 60 seconds Strength: palpated as mild Assessment/Plan Assessment Emma is a 30-year-old (G)5 para (P)3-0-1-3 at 39+1 weeks by early ultrasound. Presents to Labor and Delivery (L&D) for induction of labor at term. has been complicated by symptomatic renal calculi. Denies LOF, bleeding. Reports irregular UC. Plan Admit and orient. 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 Diet: clear liquids. Group B Streptococcus (GBS) negative. Labs and intravenous (IV) per unit protocol. Counseled on Pitocin and induction of labor (IOL). Lactated Ringers (LR): Bolus 500 mL, then at 125 mL/hr. Plans epidural Anticipate normal spontaneous delivery (). C-S as appropriate. Marta Maxwell CNM Jan 27, 2021 09:55
[2021-01-27] MEDS ORDERED: FENTANYL 2MCG/ML ROPIVACAINE 0.2% IN 0.9% NACL 100ML IVBAG As Ordered ONE (11:42)
[2021-01-27] MEDS ORDERED: diphenhydrAMINE 50MG/ML VIAL (J1200) IV PRN (13:20)
[2021-01-27] MEDS ORDERED: LACTATED RINGER'S 1000 ML IV PRN (13:20)
[2021-01-27] MEDS ORDERED: REFRIGERATOR IV KEYS XX PRN (13:20)
[2021-01-27] MEDS ORDERED: ONDANSETRON 4MG/2ML VIAL IV PRN ×2 (13:20→18:40)
[2021-01-27] MEDS ORDERED: FENTANYL/ROPIVACAINE/NACL BAG 100 ML EPIDURAL SCH (13:20)
[2021-01-27] MEDS ORDERED: EPIDURAL/PCA KEYS XX PRN (13:20)
[2021-01-27] MEDS ORDERED: EPIDURAL COMMENT XX SCH (13:20)
[2021-01-27] MEDS ORDERED: ePHEDrine SULFATE 25 MG/5 ML(5MG/ML) SYRINGE IV PRN (13:20)
[2021-01-27] MEDS ORDERED: NALOXONE INJ 0.4MG/1ML VIAL (J2310 PER 1MG) IV PRN (13:20)
[2021-01-27] MEDS ORDERED: MEASLES,MUMPS,RUBELLA VACCINE INJ (MMR-II) (90707) SC SCH (16:20)
[2021-01-27] MEDS ORDERED: IBUPROFEN 600MG TAB PO PRN (16:20)
[2021-01-27] MEDS ORDERED: RHOGAM 300 MCG (1500 IU) INJ (J2790) IM SCH (16:20)
[2021-01-27] MEDS ORDERED: ACETAMINOPHEN 500 MG TAB PO PRN (16:20)
[2021-01-27] MEDS ORDERED: DIBUCAINE 1% OINTMENT 30GM TOP PRN (16:20)
[2021-01-27] MEDS ORDERED: DOCUSATE SODIUM 100MG CAPSULE PO PRN (16:20)
[2021-01-27] MEDS ORDERED: ACETAMINOPHEN TAB 650MG DOSE (2X325MG) PO PRN (16:20)
[2021-01-27] MEDS ORDERED: MOM 30ML SUSPENSION UDC PO PRN (16:20)
[2021-01-27] MEDS: METHYLERGONOVINE MALEATE 0.2 MG TAB PO SCH ×2 (16:36→22:08)
--- NOTE | 2021-01-27 16:50 | DNPDOC ---
[facility] Delivery Note Delivery Note DATE OF DELIVERY: 01/27/2021 PREDELIVERY DIAGNOSIS: 39+1/7 weeks' gestation and labor. POST DELIVERY DIAGNOSIS: Delivered. PROCEDURE: Spontaneous vaginal delivery. PROVIDER: Marta Maxwell CNM ANESTHESIA: Epidural. ESTIMATED BLOOD LOSS: 350 mL. FINDINGS: 8 pound 6 ounce, 3790gm male , Score 9/9, no nuchal cord. DELIVERY SUMMARY: Patient is a 30-year-old 5 now para 4-0-1-4 who was admitted to labor and delivery for induction of labor due to symptomatic kidney stones. Pitocin was started and labor did ensue. She utilized an epidural for labor coping. Fully dilated 1540, AROM for small amount clear fluid. Viable male delivered JANNA without difficulty @ 1546. Spontaneous respirations, transitioned on maternal abdomen. Cord doubly clamped and cut by FOB under my direction once pulsations ceased. Apgars 9/9. Placenta aguilar, intact with 3v cord @ 1553. Fundus firmed with massage and IV premixed pitocin bolus. Misoprostol 1000mcg AK placed due to hx delayed PPH. Methergine series started. Cervix, vagina and perineum inspected. Small hemostatic perineal abrasion noted, no repair required. EBL 350ml. Sponge, sharp and instrument count correct. Parents are naming their son Ilda. Marta Maxwell CNM Jan 27, 2021 16:50
[2021-01-27] MEDS ORDERED: ONDANSETRON 4 MG TAB PO PRN (18:40)
[2021-01-27] MEDS: IBUPROFEN 800 MG TAB PO PRN (20:01)
[2021-01-28] MEDS: PERCOCET 5MG/325MG TAB PO PRN ×4 (00:24→23:12)
[2021-01-28] MEDS: IBUPROFEN 800 MG TAB PO PRN ×3 (04:11→20:56)
[2021-01-28] MEDS: METHYLERGONOVINE MALEATE 0.2 MG TAB PO SCH ×4 (05:15→22:58)
[2021-01-28 06:00] VITALS: BP 125/77
--- NOTE | 2021-01-28 07:25 | IPNPDOC ---
Text Note Date of Service The patient was seen on 01/28/21. NOTE PP #1 Complains only of flank pain. OOB independently. Voiding. Urine being strained VSS, afebrile, normotensive Breasts soft, nipples intact Fundus firm, down 2FB Lochia rubra scant without odor Perineum intact PP #1, nephrolitiasis Renal scan this am Consider urology consult VS,Delores, I+O VS, Delores, I+O Laboratory Tests 01/27/21 08:46 Vital Signs Date Time Temp Pulse Resp B/P (MAP) Pulse Ox O2 Delivery O2 Flow Rate FiO2 01/28/21 06:37 96.7 83 18 125/77 I&O- Last 24 Hours up to 6 AM 01/28/21 06:00 Intake Total 3923 ml Output Total 3250 ml Balance 673 ml Marta Maxwell CNM Jan 28, 2021 07:25
[2021-01-28] MEDS: PRENATAL VITAMINS CHEWABLE TABLET PO SCH (08:43)
--- NOTE | 2021-01-28 09:15 | REP ---
INDICATION: flank pain. COMPARISON: 12/24/2020, 12/22/2020 ultrasounds. TECHNIQUE: Standard bilateral renal ultrasound. FINDINGS: The right kidney measures 11.2 x 5.4 x 4.1 cm. There is less cortical echogenicity than on the previous study. There is some increased sinus fat abut the hydronephrosis on the previous study is improved. No hydroureter. There are multiple echogenic foci with shadowing bilaterally the largest 3 on the right are 11 x 6 x 10 mm upper pole, 8 x 6 x 6 mm interpolar region and 8 x 8 x 6 mm lower pole. The left kidney is 10.8 x 4.1 x 4.3 cm. I do not see definite hydronephrosis on the left today. 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 There are multiple echogenic foci in the kidneys with the 3 largest on the left 11 x 7 x 9 mm and 12 x 7 x 14 mm upper pole within interpolar 12 x 6 x 9 mm stone. All these show shadowing. No distension of the proximal ureters or stones within their visualized portion. Bladder not well distended and therefore very limited in evaluation, no gross abnormality seen. IMPRESSION: 1. Multiple shadowing echogenic stones in each kidney the largest 3 measuring 11, 8 and 8 mm on the right all the largest 3 on the left are 14, 12 and 11 mm in greatest diameter. 2. Hydronephrosis much improved compared to the previous study. 3. Cortical thickness and echogenicity intact. 4. A bladder not well distended and therefore limited evaluation. No gross bladder finding. <Electronically signed by Ramiro Van > 01/28/21 0902
--- NOTE | 2021-01-28 09:53 | IPNPDOC ---
Progress Note Date of Service: Jan 28, 2021 Day#: 1 Progress Note SUBJECT: Status post . She has been ambulating, voiding spontaneously with out issue and tolerating regular diet. Lochia decreasing/minimal. Denies headache, visual changes, right upper quadrant pain, shortness breath or chest pain. Bilateral flank pain has continued, Renal US ordered this AM (+nephrolithiasis, bilateral; improved hydronephrosis) OBJECTIVE: VITAL SIGNS: Within normal limits, afebrile. Alert and oriented times three. Abdomen: Fundus firm at U-2. Soft, NTTP. ASSESSMENT: Status post uncomplicated spontaneous vaginal delivery. Nephrolithiasis. Vitals within normal limits, afebrile, hemodynamically stable with no evidence of infection. PLAN: Discharge to home tomorrow. Start Macrobid 100mg PO daily for UTI/pyelonephritis prophylaxis. Tylenol and Motrin for pain; Percocet for severe pain Routine instructions/precautions reviewed. Tamela Bermeo DO VS, I&O, 24H, Fishbone Vital Signs/I&O Vital Signs Date Time Temp Pulse Resp B/P (MAP) Pulse Ox O2 Delivery O2 Flow Rate FiO2 01/28/21 08:19 16 Room Air 01/28/21 06:37 96.7 83 125/77 I&O- Last 24 Hours up to 6 AM 01/28/21 05:59 Intake Total 3923 ml Output Total 3250 ml Balance 673 ml GAVIN BERMEO DO Jan 28, 2021 09:53
[2021-01-28 17:58] VITALS: BP 111/72
[2021-01-28] MEDS ORDERED: FAMOTIDINE 20 MG TAB PO SCH (21:00)
[2021-01-28] MEDS ORDERED: NITROFURANTOIN (MACROBID) 100 MG CAP PO SCH (21:00)
[2021-01-28] MEDS: CEPHALEXIN 500 MG CAP PO SCH (21:18)
[2021-01-29] MEDS: METHYLERGONOVINE MALEATE 0.2 MG TAB PO SCH ×2 (04:41→10:20)
[2021-01-29] MEDS: IBUPROFEN 800 MG TAB PO PRN (04:58)
[2021-01-29 06:00] VITALS: BP 113/73
[2021-01-29] MEDS: PRENATAL VITAMINS CHEWABLE TABLET PO SCH (09:20)
[2021-01-29] MEDS: PERCOCET 5MG/325MG TAB PO PRN (09:20)
[2021-01-29] MEDS: CEPHALEXIN 500 MG CAP PO SCH (09:20)
[2021-01-29] MEDS ORDERED: FAMO20TA PO (10:15)
[2021-01-29] MEDS ORDERED: CEPH500C PO ×2 (10:15→12:04)
[2021-01-29] MEDS ORDERED: PERCOCET PO (10:15)
--- NOTE | 2021-01-29 10:46 | IPNPDOC ---
Progress Note Date of Service: Jan 29, 2021 Day#: 2 Progress Note SUBJECT: Status post . She has been ambulating, voiding spontaneously with out issue and tolerating regular diet. Lochia decreasing/minimal. Pain is well- controlled. Denies headache, visual changes, right upper quadrant pain, shortness breath or chest pain. Renal colic has been well controlled with Percocet. Given the presence of nephrolithiasis and being , the decision was made to proceed with prophylactic antibiotics with Keflex 500 mg twice daily. She will follow up with urology for any modification of her treatment plan. OBJECTIVE: VITAL SIGNS: Within normal limits, afebrile. Alert and oriented times three. Abdomen: Fundus firm at U-2. Soft, NTTP. ASSESSMENT: Status post uncomplicated spontaneous vaginal delivery. Vitals within normal limits, afebrile, hemodynamically stable with no evidence of infection. Nephrolithiasis, stable. PLAN: Discharge to home today. Percocet as needed for severe flank pain/renal colic. Routine instructions/precautions reviewed. Advised to stay very well-hydrated. Routine PP visit in 6 weeks in clinic. Tamela Bermeo DO VS, I&O, 24H, Delores Vital Signs/I&O Vital Signs Date Time Temp Pulse Resp B/P (MAP) Pulse Ox O2 Delivery O2 Flow Rate FiO2 01/29/21 09:20 18 01/29/21 06:00 98.1 77 113/73 (86) 01/28/21 23:42 99 Room Air I&O- Last 24 Hours up to 6 AM 01/29/21 06:00 Output Total 1200 ml Balance -1200 ml GAVIN BERMEO DO Jan 29, 2021 10:46
[2021-01-29] MEDS ORDERED: PERC5TAB12 PO (12:02)
== END 2021-01-29 11:45 | disposition home or self-care (01) | DRG 807 ==
LOC: M LDI 07:42 → M OBS 20:19
PROVIDERS: ADMIT Advanced Practice Midwife; ATTEND Advanced Practice Midwife
PROC: 10E0XZZ Delivery of Products of Conception, External Approach (ICD-10-PCS; principal; 2021-01-27)
PROC: 3E033VJ Introduction of Other Hormone into Peripheral Vein, Percutaneous Approach (ICD-10-PCS; 2021-01-27)
PROC: 10907ZC Drainage of Amniotic Fluid, Therapeutic from Products of Conception, Via Natural or Artificial Opening (ICD-10-PCS; 2021-01-27)
DX: O99.892 Other specified diseases and conditions complicating childbirth (principal); Z37.0 Single live birth; N20.0 Calculus of kidney; Z3A.39 39 weeks gestation of pregnancy; O23.03 Infections of kidney in pregnancy, third trimester

== ENCOUNTER → 2021-03-23 | Outpatient (REF) | payer OTHER ==
[~2021-03-23] MED LIST changes: +CEPH500C PO; +FAMO20TA PO; +PERC5TAB12 PO; +PERCOCET PO
== END ==
LOC: M SMT 12:51
PROVIDERS: ATTEND Specialist
DX: N20.0 Calculus of kidney (principal)

== ENCOUNTER → 2021-04-10 | Outpatient (CLI) | payer OTHER ==
--- NOTE | 2021-04-12 07:21 | REP ---
INDICATION: KIDNEY STONES COMPARISON: None TECHNIQUE: Axial noncontrast images from the lung bases to the pubic symphysis with coronal and sagittal reformations. This CT examination was performed using the following dose reduction techniques: Automated exposure control, adjustment of mA and/or kv according to the patient's size, and use of iterative reconstruction technique. FINDINGS: Lung bases are clear. Visualized heart and pericardium normal. Liver, spleen, pancreas, gallbladder, and bilateral adrenal glands are normal. Kidneys demonstrate innumerable nonobstructing nephroliths measuring up to 10 mm bilaterally. No perinephric stranding, hydroureteronephrosis or obstructing ureteral calculi identified. The enteric system is unremarkable and without obstruction or acute inflammatory process. Normal terminal ileum and appendix identified in the right lower quadrant. Pelvis demonstrates normal bladder and age-appropriate uterus/adnexa. No ascites. No free air. No adenopathy. No focal inflammatory stranding. Abdominal aorta without aneurysm. Musculoskeletal structures are intact and without acute osseous abnormality. IMPRESSION: Significant bilateral nephrolithiasis. <Electronically signed by Xu Calderon > 04/12/21 0725
== END ==
LOC: M RAD 13:19
PROVIDERS: ATTEND Specialist
DX: N20.0 Calculus of kidney (principal)

== ENCOUNTER → 2021-04-17 | Outpatient (CLI) | payer OTHER ==
[2021-04-17 14:42] LABS: ALBUMIN 4.1 GM/DL (3.2-5.2); ALT/SGPT 29 U/L (12-78); BILIRUBIN,TOTAL 0.3 MG/DL (0.2-1.0); BLOOD UREA NITROGEN 12 MG/DL (7-18); CALCIUM LEVEL 9.4 MG/DL (8.5-10.1); CARBON DIOXIDE LEVEL 27 MEQ/L (21-32); CHLORIDE LEVEL 106 MEQ/L (98-107); CREATININE FOR GFR 0.91 MG/DL (0.55-1.30); GLOMERULAR FILTRATION RATE > 60.0 (>60); GLUCOSE, FASTING 85 MG/DL (70-100); POTASSIUM SERUM 4.5 MEQ/L (3.5-5.1); SODIUM LEVEL 140 MEQ/L (136-145); TOTAL PROTEIN 7.5 GM/DL (6.4-8.2); URIC ACID 5.8 MG/DL (2.6-6.0)
[2021-04-17 14:47] LABS: PTH INTACT 65.2 PG/ML (18.5-88.0)
== END ==
LOC: M PLALAB 09:31
PROVIDERS: ATTEND Specialist
DX: N20.0 Calculus of kidney (principal)

== ENCOUNTER → 2021-04-21 | Outpatient (CLI) | payer OTHER ==
--- NOTE | 2021-04-21 14:11 | REP ---
INDICATION: CALCULUS OF KIDNEY COMPARISON: CT dated 04/10/2021 TECHNIQUE: Supine view of the abdomen and pelvis. FINDINGS: Innumerable bilateral intrarenal calculi are appreciated measuring up to roughly 8 mm. Bowel gas pattern is nonspecific. Skeletal structures are intact. No foreign body. IMPRESSION: Bilateral nephrolithiasis. <Electronically signed by Xu Calderon > 04/21/21 0112
== END ==
LOC: M PLAIMG 13:46
PROVIDERS: ATTEND Specialist
DX: N20.0 Calculus of kidney (principal)
CPT/HCPCS: 74018; G0463

== ENCOUNTER → 2021-06-14 | Outpatient (REF) | payer OTHER ==
[2021-06-14 13:54] LABS: BACTERIA, URINE AUTO NEGATIVE (NEGATIVE); MUCUS, URINE SMALL (NEGATIVE); RBC, URINE AUTO 0 /HPF (0-3); SQUAMOUS EPITHELIAL CELL UR AU 2 /HPF (0-6); WBC, URINE AUTO 5 /HPF (0-3)
== END ==
LOC: M SMT 12:43
PROVIDERS: ATTEND Specialist
DX: N20.0 Calculus of kidney (principal)
CPT/HCPCS: 81015; 87086; G0463

== ENCOUNTER → 2022-03-26 | Outpatient (CLI) | payer OTHER ==
[2022-03-26 13:40] LABS: BASO # 0.1 10^3/uL (0.0-0.2); EOS # 0.2 10^3/uL (0.0-0.5); HEMATOCRIT 39.6 % (36.0-47.0); HEMOGLOBIN 12.3 g/dl (12.0-15.5); LYMPH # 2.3 10^3/uL (1.5-5.0); MEAN CORPUSCULAR HEMOGLOBIN 25.3 pg (27.0-33.0); MEAN CORPUSCULAR HGB CONC 31.1 g/dl (32.0-36.5); MEAN CORPUSCULAR VOLUME 81.5 fl (80.0-96.0); MONO # 0.4 10^3/uL (0.0-0.8); MONO % 7.3 % (2.0-8.0); NEUTROPHILS # 2.9 10^3/uL (1.5-8.5); NEUTROPHILS % 48.4 % (36.0-66.0); PLATELET COUNT, AUTOMATED 308 10^3/uL (150-450); RED BLOOD COUNT 4.86 10^6/uL (4.00-5.40); WHITE BLOOD COUNT 5.9 10^3/uL (4.0-10.0)
[2022-03-26 14:42] LABS: ALBUMIN 4.2 GM/DL (3.2-5.2); ALT/SGPT 14 U/L (12-78); BILIRUBIN,TOTAL 0.3 MG/DL (0.2-1.0); BLOOD UREA NITROGEN 14 MG/DL (7-18); CALCIUM LEVEL 9.3 MG/DL (8.5-10.1); CARBON DIOXIDE LEVEL 28 MEQ/L (21-32); CHLORIDE LEVEL 107 MEQ/L (98-107); CHOLESTEROL LEVEL 193 MG/DL (<200); CHOLESTEROL RISK RATIO 3.509 (<5); CREATININE FOR GFR 0.96 MG/DL (0.55-1.30); FREE T4 0.89 NG/DL (0.76-1.46); GLOMERULAR FILTRATION RATE > 60.0 (>60); GLUCOSE, FASTING 68 MG/DL (70-100); HDL CHOLESTEROL 55 MG/DL (>40); LDL CHOLESTEROL 111 MG/DL (<100); NON-HDL-C 138 MG/DL; POTASSIUM SERUM 4.4 MEQ/L (3.5-5.1); SODIUM LEVEL 140 MEQ/L (136-145); THYROID STIMULATING HORMONE 0.973 uIU/ML (0.358-3.740); TOTAL PROTEIN 7.7 GM/DL (6.4-8.2); TRIGLYCERIDES LEVEL 133 MG/DL (<150)
== END ==
LOC: M PLALAB 09:39
PROVIDERS: ATTEND Family Medicine
DX: Z13.220 Encounter for screening for lipoid disorders (principal); Z13.0 Encounter for screening for diseases of the blood and blood-forming organs and certain disorders involving the immune mechanism; Z13.29 Encounter for screening for other suspected endocrine disorder

== ENCOUNTER → 2022-03-26 | Outpatient (CLI) | payer OTHER | LOC: M PLALAB 09:40 | PROVIDERS: ATTEND Specialist | DX: N20.0 Calculus of kidney (principal) ==

== ENCOUNTER 2022-10-22 10:24 | Day surgery (SDC) | payer OTHER ==
[~2022-10-22] VITALS: Ht 157.5 cm; Wt 68.0 kg
[~2022-10-22 10:24] MED LIST changes: +NS 1,000 ML IV ONE; +OMEP40CA5 PO; +POTA4.25 PO; +TAGA200T3 PO
[2022-10-22] MEDS ORDERED: fentaNYL 100 MCG/2 ML INJECTION As Ordered ONE (11:26)
[2022-10-22] MEDS ORDERED: LIDOCAINE 2% 100MG/5ML SDV (FOR ANES.) As Ordered ONE (11:54)
[2022-10-22] MEDS ORDERED: propofoL 200 MG/20 ML VIAL As Ordered ONE (11:54)
[2022-10-22 12:55] VITALS: BP 118/63
== END 2022-10-22 13:08 | disposition home or self-care (01) ==
LOC: M OPP 10:24
PROVIDERS: ATTEND Internal Medicine Gastroenterology
DX: K21.00 Gastro-esophageal reflux disease with esophagitis, without bleeding (principal); R12 Heartburn; Z79.899 Other long term (current) drug therapy; Z87.442 Personal history of urinary calculi
CPT/HCPCS: 43239; 88305; J3010

== ENCOUNTER → 2023-03-27 | Outpatient (CLI) | payer OTHER ==
[~2023-03-27] MED LIST changes: -NS 1,000 ML IV ONE
== END ==
LOC: M RAD 12:09
PROVIDERS: ATTEND Specialist
DX: N20.0 Calculus of kidney (principal)

== ENCOUNTER 2023-04-18 10:18 | Day surgery (SDC) | payer OTHER ==
[~2023-04-18] VITALS: Ht 157.5 cm; Wt 65.8 kg
[~2023-04-18 10:18] MED LIST changes: +TRET0.1G10 EX; +ceFAZolin SOD 2 GM in IV 1 EA IV ONE
[2023-04-18] MEDS ORDERED: propofoL 200 MG/20 ML VIAL As Ordered ONE (11:44)
[2023-04-18] MEDS ORDERED: fentaNYL 100 MCG/2 ML INJECTION As Ordered ONE (11:44)
[2023-04-18] MEDS ORDERED: MIDAZOLAM INJ 2MG/2ML VIAL As Ordered ONE (11:44)
[2023-04-18] MEDS ORDERED: KETOROLAC 60MG 2ML VIAL As Ordered ONE (11:45)
[2023-04-18] MEDS ORDERED: ONDANSETRON 4MG 2ML VIAL As Ordered ONE (11:45)
[2023-04-18] MEDS ORDERED: LIDOCAINE 2% 100MG/5ML SDV (FOR ANES.) As Ordered ONE (11:45)
[2023-04-18] MEDS ORDERED: ACETAMINOPHEN 1000MG 100ML IV BAG As Ordered ONE (11:46)
[2023-04-18] MEDS ORDERED: LR 1,000 ML IV SCH (11:55)
[2023-04-18] MEDS ORDERED: HYDR-3713 PO (12:29)
[2023-04-18] MEDS ORDERED: MACR100C43 PO (12:29)
[2023-04-18] MEDS ORDERED: ePHEDrine SULFATE 25 MG/5 ML(5MG/ML) SYRINGE As Ordered ONE (12:33)
[2023-04-18 13:12] VITALS: BP 119/68; TEMP 98.1; O2SAT 100
== END 2023-04-18 13:24 | disposition home or self-care (01) ==
LOC: M SDC 10:18
PROVIDERS: ATTEND Urology
DX: N20.0 Calculus of kidney (principal); K21.9 Gastro-esophageal reflux disease without esophagitis; Z87.442 Personal history of urinary calculi; Z79.899 Other long term (current) drug therapy; Z86.16 Personal history of COVID-19
CPT/HCPCS: 50590; 74018; 81025; J0131; J0690; J1885; J2250; J2405; J3010

== ENCOUNTER → 2023-05-16 | Outpatient (CLI) | payer OTHER ==
[~2023-05-16] MED LIST changes: +HYDR-3713 PO; +MACR100C43 PO; -ceFAZolin SOD 2 GM in IV 1 EA IV ONE
== END ==
LOC: M PLAIMG 08:36
PROVIDERS: ATTEND Specialist
DX: N20.0 Calculus of kidney (principal)

== ENCOUNTER → 2023-05-27 | Outpatient (REF) | payer OTHER ==
[~2023-05-27] MED LIST changes: +FLUO10CA18 PO
[2023-05-27 10:57] LABS: APPEARANCE, URINE CLEAR (CLEAR); BACTERIA, URINE AUTO NEGATIVE (NEGATIVE); BILIRUBIN, URINE AUTO NEGATIVE (NEGATIVE); BLOOD, URINE BLOOD 2+ (NEGATIVE); COLOR, URINE YELLOW (YELLOW); GLUCOSE, URINE (UA) AUTO NEGATIVE (NEGATIVE); KETONE, URINE AUTO NEGATIVE (NEGATIVE); LEUKOCYTE ESTERASE, URINE AUTO NEGATIVE (NEGATIVE); MUCUS, URINE SMALL (NEGATIVE); NITRITE, URINE AUTO NEGATIVE (NEGATIVE); PROTEIN, URINE AUTO NEGATIVE (NEGATIVE); RBC, URINE AUTO TNTC /HPF (0-3); SPECIFIC GRAVITY URINE AUTO 1.014 (1.002-1.035); SQUAMOUS EPITHELIAL CELL UR AU 0 /HPF (0-6); UROBILINOGEN, URINE AUTO 0.2 mg/dL (0.0-2.0); WBC, URINE AUTO 4 /HPF (0-3)
== END ==
LOC: M SMT 09:47
PROVIDERS: ATTEND Physician Assistant
DX: Z01.818 Encounter for other preprocedural examination (principal)

== ENCOUNTER 2023-05-30 08:20 | Day surgery (SDC) | payer OTHER ==
[~2023-05-30] VITALS: Ht 157.5 cm; Wt 63.0 kg
[~2023-05-30 08:20] MED LIST changes: +ceFAZolin SOD 2 GM in IV 1 EA IV ONE
[2023-05-30] MEDS ORDERED: MIDAZOLAM INJ 2MG/2ML VIAL As Ordered ONE (10:31)
[2023-05-30] MEDS ORDERED: fentaNYL 100 MCG/2 ML INJECTION As Ordered ONE (10:31)
[2023-05-30] MEDS ORDERED: LIDOCAINE 2% 100MG/5ML SDV (FOR ANES.) As Ordered ONE (10:31)
[2023-05-30] MEDS ORDERED: propofoL 200 MG/20 ML VIAL As Ordered ONE (10:31)
[2023-05-30] MEDS ORDERED: ONDANSETRON 4MG 2ML VIAL As Ordered ONE (10:32)
[2023-05-30] MEDS ORDERED: ePHEDrine SULFATE 25 MG/5 ML(5MG/ML) SYRINGE As Ordered ONE (10:50)
[2023-05-30] MEDS ORDERED: oxyCODONE 5MG TAB PO ONE (11:55)
[2023-05-30 12:30] VITALS: BP 124/89; TEMP 97.3
[2023-05-30 12:32] VITALS: O2SAT 98
== END 2023-05-30 12:30 | disposition home or self-care (01) ==
LOC: M SDC 08:20 → UNDOADMIN 09:09 → M OR 09:09 → M SDC 12:30 → UNDODISIN 12:30
PROVIDERS: ATTEND Urology
DX: N20.0 Calculus of kidney (principal); K21.9 Gastro-esophageal reflux disease without esophagitis; F41.9 Anxiety disorder, unspecified; Z79.899 Other long term (current) drug therapy
CPT/HCPCS: 50590; 74018; 81025; J2250; J2405; J3010

== ENCOUNTER → 2023-06-19 | Outpatient (CLI) | payer OTHER ==
[~2023-06-19] MED LIST changes: -ceFAZolin SOD 2 GM in IV 1 EA IV ONE
== END ==
LOC: M PLAIMG 10:43
PROVIDERS: ATTEND Physician Assistant
DX: Z01.818 Encounter for other preprocedural examination (principal); N20.0 Calculus of kidney

== ENCOUNTER → 2023-06-24 | Outpatient (REF) | payer OTHER | LOC: M SMT 13:32 | PROVIDERS: ATTEND Physician Assistant | DX: N20.0 Calculus of kidney (principal) ==

== ENCOUNTER → 2023-12-20 | Outpatient (CLI) | payer OTHER ==
[~2023-12-20] MED LIST changes: +FLUO-290 PO; -FLUO10CA18 PO; +ONDA-282 PO; -ONDA4TAB6 PO
== END ==
LOC: M RAD 14:25
PROVIDERS: ATTEND Physician Assistant
DX: N20.0 Calculus of kidney (principal)